=== PATIENT | female | born 1950 | race Caucasian/White ===

== ENCOUNTER 2021-07-26 16:23 | Emergency (ER) | payer MEDICARE, MEDICAID, SELFPAY ==
[2021-07-26 17:38] VITALS: BP 122/65; PULSE 93; RESP 16; TEMP 36.3; O2SAT 94
--- NOTE | 2021-07-26 17:52 | ED.GENADULT ---
HPI - General Adult General Chief complaint: Upper Respiratory Infection Stated complaint: earache,sinus drainage,headach Source: patient Mode of arrival: ambulatory Limitations: no limitations History of Present Illness HPI narrative: Patient presents for evaluation of sinus congestion and mucopurulent drainage from both naris for the last 3 weeks. She has a history of recurrent sinusitis and current symptoms are consistent with those previously experienced with sinusitis. No fever, chills, nausea, vomiting. She recently had a sleep study and had a Covid screening just prior to that study which was negative. No recent sick contacts to her knowledge. Her PCP is out of the office for several weeks so she came here to receive a prescription for azithromycin, which always helps with bacterial sinusitis. She has not tolerated cephalosporins or Augmentin well in the past. She has a chronic nonproductive cough, unchanged. Denies other worrisome complaints. Related Data Allergies Allergy/AdvReac Type Severity Reaction Status Date / Time No Known Allergies Allergy Verified 07/26/21 17:33 Review of Systems Review of Systems: CONSTITUTIONAL: Denies fever, chills, or sweats. EYES: Denies visual changes, redness, or discharge. ENT: Reports sinus congestion and mucopurulent discharge from both nares. Denies otalgia.. CARDIOVASCULAR: Denies chest pain, palpitations, or edema. RESPIRATORY: Denies cough or dyspnea. GASTROINTESTINAL: Denies abdominal pain, nausea, vomiting, or diarrhea. GENITOURINARY: Denies dysuria or hematuria. SKIN: Denies rash or itching. MUSCULOSKELETAL: Denies back pain, joint pain, or myalgia. NEUROLOGIC: Denies headache, numbness, dizziness, or weakness. PSYCHIATRIC: Denies anxiety or depression. [facility] Past Medical History Medical History (Updated 07/26/21 @ 17:56 by ZOË Frederick, PIYUSH) Recurrent sinusitis Sleep apnea Surgical History Surgical History History of appendectomy History of shoulder surgery Family History Family History Mother Family history unknown Social History Social History Substance use: never Living arrangements: with family Gender identity (if verbalized by the patient): Female Spiritual care concerns: No Exam Narrative: GENERAL: Well-appearing, well-nourished, and in no acute distress. HEAD: Normocephalic, atraumatic. EYES: PERRLA and EOMI. ENT: Nares clear, no rhinorrhea or epistaxis. Mucous membranes moist with mucopurulent discharge noted in bilateral naris. Tenderness over bilateral maxillary sinuses. Oropharynx without tonsillar hypertrophy exudate or other lesions. Bilateral TMs pearly rader nonbulging NECK: Supple. No adenopathy or masses. No carotid bruits or JVD CHEST: Clear to auscultation. No respiratory distress. No wheezes rales or rhonchi HEART: Regular rate and rhythm. No murmur heard. Normal peripheral pulses. ABDOMEN: Soft, nontender, nondistended, normal active bowel sounds. EXTREMITIES: Normal range of motion. No edema. SKIN: Warm, dry, no rash. NEURO: No focal deficits. Alert and oriented x3. PSYCH: Normal mood and affect. Course Course Emergency Course: This is a 71-year-old female that presented with complaints of sinus congestion and mucopurulent discharge from her nares. She meets criteria for fever acute bacterial rhinosinusitis based on nature of symptoms and duration of symptoms. Historically she has responded well to azithromycin. Will prescribe this. She should follow her primary care provider return for worsening. Level of Care: Express Care Visit Vital Signs Vital signs: Vital Signs Temperature 36.3 C L 07/26/21 17:38 Pulse Rate 93 07/26/21 17:38 Respiratory Rate 16 07/26/21 17:38 Blood Pressure 122/65 07/26/21 17:38 Pulse Oxim
== END 2021-07-26 18:00 | disposition home or self-care (01) ==
PROVIDERS: Emergency Provider Nurse Practitioner
DX: J01.90 Acute sinusitis, unspecified (principal); Z20.822 Contact with and (suspected) exposure to COVID-19; G47.33 Obstructive sleep apnea (adult) (pediatric)
CPT/HCPCS: 87426; 99213; C9803; G0463

== ENCOUNTER 2021-08-06 14:12 | Emergency (ER) | payer MEDICARE, MEDICAID, SELFPAY ==
--- NOTE | ~2021-08-06 | XR_ITS ---
EXAMINATION: XR shoulder LT min 2V DATE: 08/06/2021 15:00 INDICATION: Left shoulder pain. Fall 2 weeks ago. TECHNIQUE: 4 views of left shoulder were obtained. COMPARISON: None. FINDINGS: Bone alignment is normal. No acute fracture. There may be changes of distal clavicle resect ion. There is mild osteoarthritis of glenohumeral joint. There is a suture anchor in humeral head. Th ere are changes of anterior fusion procedure in cervical spine. There are old healed left rib fractur es. IMPRESSION: 1. Mild glenohumeral joint osteoarthritis. Reviewed, dictated and finalized at location B. EMATIC MACHINE OPERATOR
--- NOTE | ~2021-08-06 | XR_ITS ---
EXAMINATION: XR cervical spine 4-5V EXAM DATE: 08/06/2021 15:01 INDICATION: fall 2 weeks ago/pain lt shoulder mid back,also numb hands. TECHNIQUE: Cervical spine lateral, swimmer's, frontal, open-mouth odontoid projections. There is no prior study for comparison. FINDINGS: Bones are osteopenic. Cervical fusion plate at C4-5 and 5-6. The odontoid process is intac t. The lateral masses of C1 line up with C2. There are no acute fractures identified. Thoracic kyph osis and chronic appearing compression fractures. Lung apices clear. Prevertebral soft tissue and pre -dens space are within normal limits. Evidence of moderate arthropathy. IMPRESSION: Moderate cervical arthropathy. No acute fracture identified. Reviewed, dictated and finalized at location A. ISH FILTERER
--- NOTE | ~2021-08-06 | XR_ITS ---
EXAMINATION: XR thoracic spine 3V EXAM DATE: 08/06/2021 15:01 INDICATION: fall 2weeks ago/pain lt shoulder mid back,also numb hands. TECHNIQUE: Frontal and lateral projections of the thoracic spine as well as lateral swimmers projecti on of the upper thoracic spine for interpretation. There is no prior study for comparison. FINDINGS: Cervical fusion hardware. There are 3 consecutive midthoracic burst/compression fractures which appear chronic and causing kyphosis. There is methylmethacrylate injected at the upper 2 of the se 3 levels. The vertebral bodies are aligned in the AP dimension. No erosive change. Multiple old le ft rib fractures. IMPRESSION: Midthoracic compression/burst fractures, chronic appearance. Kyphosis. Reviewed, dictated and finalized at location A. HEARTH LABORER IMPRESSION: Midthoracic compression/burst fractures, chronic appearance. Kypho sis.
[2021-08-06 14:23] VITALS: BP 121/109; PULSE 95; RESP 20; TEMP 36.7; O2SAT 98
--- NOTE | 2021-08-06 14:26 | ED.GENADULT ---
HPI - General Adult General Chief complaint: Back Pain/Injury Stated complaint: Left shoulder injury Source: patient Mode of arrival: ambulatory Limitations: no limitations History of Present Illness HPI narrative: 71-year-old female presenting for complaint of left shoulder and mid upper spine pain for over 2 weeks. She states she was injured while walking 3 dogs, and was dragged by one of the dogs during a dog fight. She has not sought treatment and stay the pain is worsening and she is starting to feel numbness and tingling in her arms. She has been using Salonpas and voltaren gel without relief. States she cannot take tylenol per MD. Related Data Home Medications Medication Instructions Recorded Confirmed albuterol sulfate 08/06/21 clobetasol TOPICAL 08/06/21 furosemide 08/06/21 gabapentin 08/06/21 lorazepam 08/06/21 pravastatin 08/06/21 sumatriptan succinate mg PO 08/06/21 Allergies Allergy/AdvReac Type Severity Reaction Status Date / Time No Known Allergies Allergy Verified 07/26/21 17:33 Review of Systems Review of Systems: CONSTITUTIONAL: Denies body aches, fever, chills, or sweats. EYES: Denies visual changes, redness, or discharge. ENT: Denies rhinorrhea, congestion, sore throat, or otalgia. CARDIOVASCULAR: Denies chest pain, palpitations, or edema. RESPIRATORY: Denies cough or dyspnea. GASTROINTESTINAL: Denies abdominal pain, nausea, vomiting, or diarrhea. GENITOURINARY: Denies dysuria or hematuria. SKIN: Denies rash, itching, or wounds. MUSCULOSKELETAL: Endorses back and shoulder pain NEUROLOGIC: Denies headache, numbness, tingling, or weakness. PSYCH: Denies depression or anxiety. All systems reviewed & are unremarkable except as noted in HPI and below PMFSH Past Medical History Medical History Recurrent sinusitis Sleep apnea Surgical History Surgical History History of appendectomy History of shoulder surgery Family History Family History Mother Family history unknown Social History Social History Substance use: never Gender identity (if verbalized by the patient): Female Spiritual care concerns: No Comments At time of signature, I have reviewed and agree with nursing past medical, surgical, social and family history unless otherwise noted. Please see nursing chart for further information. There is no relevant family history pertinent to the presenting complaint Exam Narrative: GENERAL: appears in pain, no acute distress. older than stated age HEAD: Normocephalic, atraumatic. EYES: EOMI. No redness or drainage. Conjunctivae normal. ENT: Mucous membranes pink and moist. NECK: Normal AROM. Supple. No lymphadenopathy. CHEST: No respiratory distress. Clear/diminished to auscultation. HEART: Regular rate and rhythm. No murmur appreciated. Normal peripheral pulses. ABDOMEN: Soft, nontender, nondistended, normal active bowel sounds. MUSCULOSKELETAL: vertebral tenderness approx T1-T3. kyphotic EXTREMITIES: Limited range of motion to bilat UE due to pain SKIN: Warm, dry, no rash. Capillary refill normal. poor skin turgor. NEURO: No focal deficits. Alert and oriented x3. Gait steady. PSYCH: Normal affect. No signs of depression or anxiety. Course Course Emergency Course: Reviewed 3 xrays with pt, no acute fx or dislocation. pt is aware of chronic compression fx, stating she has been told she has over 20 fractures in her spine from the last spine scan. Patient is aware of diagnosis, understands and agrees to treatment plan. Anticipatory guidance given. Patient agrees to follow-up as directed and is aware of reasons to seek care at the emergency department. Portions of this record may have been created with voice recognition software L
== END 2021-08-06 16:17 | disposition home or self-care (01) ==
PROVIDERS: Emergency Provider Nurse Practitioner Family
DX: M54.6 Pain in thoracic spine (principal); M25.512 Pain in left shoulder; G47.30 Sleep apnea, unspecified
CPT/HCPCS: 72050; 72072; 73030; 99214; G0463